=== PATIENT | male | born 1995 | race Caucasian/White ===

== ENCOUNTER 2017-04-12 17:58 | Emergency (ER) | payer SELFPAY ==
[~2017-04-12] VITALS: Ht 193 cm; Wt 90.7 kg
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
[2017-04-12] MEDS ORDERED: LIDOCAINE 1% INJ 20 ML (XYLOCAINE) VIAL INJ ONE (19:00)
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
== END 2017-04-12 20:18 | disposition home or self-care (01) ==
LOC: EDUNIT# 17:58 → ER 18:02
DX: S01.01XA Laceration without foreign body of scalp, initial encounter (principal); Y08.89XA Assault by other specified means, initial encounter
CPT/HCPCS: 70450; 72125

== ENCOUNTER 2017-04-18 10:39 | Emergency (ER) | payer SELFPAY ==
[~2017-04-18] VITALS: Ht 180.3 cm; Wt 86.2 kg
[2017-04-18 11:17] VITALS: BP 110/70
== END 2017-04-18 11:06 | disposition home or self-care (01) ==
LOC: EDUNIT# 10:39 → ER 10:43
DX: S01.01XD Laceration without foreign body of scalp, subsequent encounter (principal); X58.XXXD Exposure to other specified factors, subsequent encounter